=== PATIENT | male | born 1970 | race Caucasian/White ===

== ENCOUNTER 2021-06-17 22:31 | Emergency (ER) | payer OTHER ==
[~2021-06-17] VITALS: Ht 162.6 cm; Wt 70.5 kg
[2021-06-17] MEDS ORDERED: PHEN20EL10 PO (22:53)
[2021-06-17] MEDS ORDERED: LISI-894 PO (22:53)
[2021-06-17] MEDS ORDERED: ENALAPRIL MALEATE 20 MG TABLET PO ONE (23:15)
[2021-06-17] MEDS ORDERED: ENAL20TA18 PO (23:24)
[2021-06-17] MEDS ORDERED: PHEN100T PO (23:24)
[2021-06-17 23:40] VITALS: BP 141/100
[2021-06-18] MEDS ORDERED: PHEN100T PO (00:07)
[2021-06-18] MEDS ORDERED: ENAL20TA18 PO (00:07)
== END 2021-06-17 23:50 | disposition home or self-care (01) ==
LOC: EMS 22:33
DX: I10 Essential (primary) hypertension (principal); G40.909 Epilepsy, unspecified, not intractable, without status epilepticus; F32.9 Major depressive disorder, single episode, unspecified; Z79.899 Other long term (current) drug therapy
CPT/HCPCS: 99283